=== PATIENT | male | born 1935 | race Caucasian/White ===

== ENCOUNTER 2019-12-13 13:55 | Emergency (ER) | payer OTHER ==
[~2019-12-13] VITALS: Ht 182.9 cm; Wt 90.9 kg
[2019-12-13 14:26] LABS: BASO % 0 % (0-3); EOS # 0.2 x10^3/uL (0.0-0.7); EOS % 3 % (0-3); HEMATOCRIT 33.7 % (39.0-53.0); HEMOGLOBIN 11.4 g/dL (13.0-17.5); LYMPH # 1.7 x10^3/uL (1.0-4.8); LYMPH % 33 % (24-48); MEAN CORPUSCULAR HEMOGLOBIN 32 pg (25-35); MEAN CORPUSCULAR HGB CONC 34 g/dL (31-37); MEAN CORPUSCULAR VOLUME 93 fL (79-100); MONO # 0.5 x10^3/uL (0.0-1.1); MONO % 10 % (0-9); NEUT # 2.8 x10^3/uL (1.8-7.7); NEUT % 53 % (31-73); PLATELET COUNT 154 x10^3/uL (140-400); RED BLOOD COUNT 3.62 x10^6/uL (4.30-5.70); RED CELL DISTRIBUTION WIDTH 13.3 % (11.5-14.5); WHITE BLOOD COUNT 5.2 x10^3/uL (4.0-11.0)
[2019-12-13 14:35] LABS: PROTHROMBIN TIME PATIENT 13.9 SEC (11.7-14.0)
[2019-12-13 14:44] LABS: CALCIUM 8.6 mg/dL (8.5-10.1); CREATININE 1.3 mg/dL (0.7-1.3); GFR 52.7
[2019-12-13 14:50] LABS: ALBUMIN 3.5 g/dL (3.4-5.0); MAGNESIUM 1.9 mg/dL (1.8-2.4); TOTAL BILIRUBIN 0.2 mg/dL (0.2-1.0); TOTAL PROTEIN 6.9 g/dL (6.4-8.2)
--- NOTE | 2019-12-13 15:08 | EKG ---
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
[2019-12-13] MEDS ORDERED: IV NORMAL SALINE 1000ML BAG 1,000 ML IV ONE (15:45)
--- NOTE | 2019-12-13 16:28 | PHYS DOC ---
Past Medical History Past Medical History: Dementia, Diabetes-Type II, Hypertension Past Surgical History: Other Additional Past Surgical Histo: UNKNOWN Smoking Status: Never Smoker Alcohol Use: None General Adult EDM: Chief Complaint: WEAKNESS/GENERALIZED HPI: HPI: Patient is a 84 year old male who was found on the floor between his bed and the washer and drier tender naphthalene units inside his bedroom. Patient was not sure what happened. He denied any chest pain, no headache, no neck pain, no back pain, n o abdominal pain, no nausea or vomiting. No cough, no fever. No shortness of air. Patient said he felt a little weaker than usual but can move all extremities, no speech problem. His daughter said he was usually acting this way when he was dehydrated. Review of Systems: Review of Systems: Constitutional: Denies fever or chills. Positive for generalized weakness Eyes: Denies change in visual acuity. [] HENT: Denies nasal congestion or sore throat. [] Respiratory: Denies cough or shortness of breath. [] Cardiovascular: Denies chest pain or edema. [] GI: Denies abdominal pain, nausea, vomiting, bloody stools or diarrhea. [] : Denies dysuria. [] Musculoskeletal: Denies back pain or joint pain. [] Integument: Denies rash. [] Neurologic: Denies headache, focal weakness or sensory changes. [] Endocrine: Denies polyuria or polydipsia. [] Lymphatic: Denies swollen glands. [] Psychiatric: Denies depression or anxiety. [] Heart Score: Risk Factors: Risk Factors: DM, Current or recent (<one month) smoker, HTN, HLP, family history of CAD, obesity. Risk Scores: Score 0 - 3: 2.5% MACE over next 6 weeks - Discharge Home Score 4 - 6: 20.3% MACE over next 6 weeks - Admit for Clinical Observation Score 7 - 10: 72.7% MACE over next 6 weeks - Early Invasive Strategies Current Medications: Current Medications Medications (Trade) Dose Ordered Sig/Jayesh Start Time Stop Time Status Last Admin Dose Admin Sodium Chloride 1,000 ml @ 1,000 mls/hr 1X ONCE 12/13/19 15:45 12/13/19 16:44 12/13/19 15:50 1,000 MLS/HR Allergies: Allergies: Allergies Coded Allergies Type Severity Reaction Last Updated Verified No Known Drug Allergies 12/13/19 No Physical Exam: PE: Constitutional: Well developed, well nourished, no acute distress, non-toxic appearance. [] HENT: Normocephalic, atraumatic, bilateral external ears normal, oropharynx is dried, no oral exudates, nose normal. [] Eyes: PERRLA, EOMI, conjunctiva normal, no discharge. [] Neck: Normal range of motion, no tenderness, supple, no stridor. [] Cardiovascular:Heart rate regular rhythm, no murmur [] Lungs & Thorax: Bilateral breath sounds clear to auscultation [] Abdomen: Bowel sounds normal, soft, no tenderness, no masses, no pulsatile masses. [] Skin: Warm, dry, no erythema, no rash. [] Back: No tenderness, no CVA tenderness. [] Extremities: No tenderness, no cyanosis, no clubbing, ROM intact, no edema. [] Neurologic: Alert and oriented X 3, normal motor function, normal sensory function, no focal deficits noted. [] Psychologic: Affect normal, judgement normal, mood normal. [] Current Patient Data: Labs: Laboratory Tests Test 12/13/19 14:05 White Blood Count 5.2 x10^3/uL (4.0-11.0) Red Blood Count 3.62 x10^6/uL (4.30-5.70) L Hemoglobin 11.4 g/dL (13.0-17.5) L Hematocrit 33.7 % (39.0-53.0) L Mean Corpuscular Volume 93 fL (79-100) Mean Corpuscular Hemoglobin 32 pg (25-35) Mean Corpuscular Hemoglobin Concent 34 g/dL (31-37) Red Cell Distribution Width 13.3 % (11.5-14.5) Platelet Count 154 x10^3/uL (140-400) Neutrophils (%) (Auto) 53 % (31-73) Lymphocytes (%) (Auto) 33 % (24-48) Monocytes (%) (Auto) 10 % (0-9) H Eosinophils (%) (Auto) 3 % (0-3) Basophils (%) (Auto) 0 % (0-3) Neutrophils # (Auto) 2.8 x10^3/uL (1.8-7.7) Lymphocytes # (Auto) 1.7 x10^3/uL (1.0-4.8) Monocytes # (Auto) 0.5 x10^3/uL (0.0-1.1) Eosinophils # (Auto) 0.2 x10^3/uL (0.0-0.7) Basophils # (Auto) 0.0 x10^3/uL (0.0-0.2) Prothrombin Time 13.9 SEC (11.7-14.0) Prothrombin Time INR 1.1 (0.8-1.1) Activated Partial Thromboplast Time 33 SEC (24-38) Sodium Level 137 mmol/L (136-145) Potassium Level 4.0 mmol/L (3.5-5.1) Chloride Level 102 mmol/L (98-107) Carbon Dioxide Level 28 mmol/L (21-32) Anion Gap 7 (6-14) Blood Urea Nitrogen 16 mg/dL (8-26) Creatinine 1.3 mg/dL (0.7-1.3) Estimated GFR (Cockcroft-Gault) 52.7 BUN/Creatinine Ratio 12 (6-20) Glucose Level 99 mg/dL (70-99) Calcium Level 8.6 mg/dL (8.5-10.1) Magnesium Level 1.9 mg/dL (1.8-2.4) Total Bilirubin 0.2 mg/dL (0.2-1.0) Aspartate Amino Transferase (AST) 24 U/L (15-37) Alanine Aminotransferase (ALT) 15 U/L (16-63) L Alkaline Phosphatase 65 U/L (46-116) Troponin I Quantitative < 0.017 ng/mL (0.000-0.055) YC-Dxc-R-Type Natriuretic Peptide 76 pg/mL (0-449) Total Protein 6.9 g/dL (6.4-8.2) Albumin 3.5 g/dL (3.4-5.0) Albumin/Globulin Ratio 1.0 (1.0-1.7) Lipase 268 U/L (73-393) Thyroid Stimulating Hormone (TSH) 0.996 uIU/mL (0.358-3.74) Laboratory Tests 12/13/19 14:05 Laboratory Tests 12/13/19 14:05 Vital Signs: Vital Signs Date Time Temp Pulse Resp B/P (MAP) Pulse Ox O2 Delivery O2 Flow Rate FiO2 12/13/19 14:59 67 96 12/13/19 13:55 97.8 20 138/62 (87) Room Air 97.8 EKG: EKG: [][facility] [id number] [place] [address] EKG REPORT Signed PATIENT: PATTI WASSERMAN ACCOUNT: [id number] : 1935 LOCATION: ER AGE: 84 SEX: M EXAM PROCEDURE: 12 Lead EKG STATUS: REG ER ORD. 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: : 1935 Requested By: GOKUL ALVARADO Order Number: [id number] Reading MD: Valerie Gautam Measurements Intervals [place] Rate: 61 P: 0 DE: 188 QRS: -42 QRSD: 130 T: 64 QT: 452 QTc: 457 Interpretive Statements SINUS RHYTHM ABNORMAL LEFT AXIS DEVIATION LEFT ANTERIOR FASCICULAR BLOCK NON SPECIFIC INTRAVENTRICULAR BLOCK Electronically Signed On 12-13-2019 16:53:00 CDT by Valerie Gautam DICTATED and SIGNED BY: VALERIE GAUTAM MD DATE: 12/13/19 1401 Radiology/Procedures: Radiology/Procedures: [] Course & Med Decision Making: Course & Med Decision Making Pertinent Labs and Imaging studies reviewed. (See chart for details) Patient is a 84 year old male who was found to be dehydrated. He was given iv fluid. He felt much better, denied any chest pain, no headache, no neck pain, no back pain, no abdominal pain. His daughter was here with him, agreed to take him home. Dragon Disclaimer: Dragon Disclaimer: This electronic medical record was generated, in whole or in part, using a voice recognition dictation system. Departure Departure Impression: Primary Impression: Dehydration Additional Impression: Weakness Disposition: 01 HOME, SELF-CARE Condition: IMPROVED Referrals: UNKNOWN PCP NAME (PCP) PLEASE CALL YOUR FAMILY DOCTOR FOR FOLLOW UP NEXT WEEK. Patient Instructions: Dehydration, Adult, Weakness Additional Instructions: Thank you for visiting our Emergency Department. We appreciate you trusting us with your care. If any additional problems come up don't hesitate to return to visit us. Please follow up with your primary care provider so they can plan additional care if needed and know about the problem that you had. If symptoms worsen come back to the Emergency Department. Any concerning symptoms that start such as chest pain, shortness of air, weakness or numbness on one side of the body, running high fevers or any other concerning symptoms return to the ER. Justicifation of Admission Dx: Justifications for Admission: Justification of Admission Dx: N/A GOKUL ALVARADO DO Dec 13, 2019 16:28
[2019-12-13 16:59] VITALS: BP 154/65
== END 2019-12-13 17:10 | disposition home or self-care (01) ==
LOC: ER 13:55
DX: E86.0 Dehydration (principal); R53.1 Weakness; E11.9 Type 2 diabetes mellitus without complications; I10 Essential (primary) hypertension; F03.90 Unspecified dementia, unspecified severity, without behavioral disturbance, psychotic disturbance, mood disturbance, and anxiety
CPT/HCPCS: 36415; 80053; 83690; 83735; 83880; 84443; 84484; 85025; 85610; 85730; 93005; 96360; 99285; J7030

== ENCOUNTER 2021-11-15 13:59 | Inpatient (IN) | payer MEDICARE, OTHER ==
[~2021-11-15] VITALS: Ht 182.9 cm; Wt 72.7 kg
[2021-11-15] MEDS ORDERED: MORPHINE SULFATE 2 MG/ML INJ. IV/SQ PRN (14:15)
[2021-11-15 14:24] LABS: BASO % 0 % (0-3); EOS % 4 % (0-3); HEMATOCRIT 28.5 % (39.0-53.0); HEMOGLOBIN 9.6 g/dL (13.0-17.5); LYMPH # 1.4 x10^3/uL (1.0-4.8); LYMPH % 16 % (24-48); MEAN CORPUSCULAR HEMOGLOBIN 31 pg (25-35); MEAN CORPUSCULAR HGB CONC 34 g/dL (31-37); MEAN CORPUSCULAR VOLUME 91 fL (79-100); MONO % 10 % (0-9); NEUT # 6.1 x10^3/uL (1.8-7.7); NEUT % 70 % (31-73); PLATELET COUNT 310 x10^3/uL (140-400); RED BLOOD COUNT 3.12 x10^6/uL (4.30-5.70); RED CELL DISTRIBUTION WIDTH 14.5 % (11.5-14.5); WHITE BLOOD COUNT 8.7 x10^3/uL (4.0-11.0)
[2021-11-15 14:25] LABS: EOS # 0.3 x10^3/uL (0.0-0.7); MONO # 0.9 x10^3/uL (0.0-1.1)
[2021-11-15 14:31] LABS: PROTHROMBIN TIME PATIENT 14.4 SEC (11.7-14.0)
[2021-11-15 14:37] LABS: CALCIUM 8.8 mg/dL (8.5-10.1); POTASSIUM 4.4 mmol/L (3.5-5.1)
[2021-11-15 14:44] LABS: ALBUMIN 2.6 g/dL (3.4-5.0); ALBUMIN/GLOBULIN RATIO 0.7 (1.0-1.7); MAGNESIUM 1.9 mg/dL (1.8-2.4); TOTAL BILIRUBIN 0.4 mg/dL (0.2-1.0); TOTAL PROTEIN 6.3 g/dL (6.4-8.2)
--- NOTE | 2021-11-15 15:00 | PHYS DOC ---
Past Medical History Past Medical History: Dementia, Diabetes-Type II, Hypertension Past Surgical History: Other Additional Past Surgical Histo: UNKNOWN Smoking Status: Never Smoker Alcohol Use: None General Adult EDM: Chief Complaint: HIP PAIN HPI: HPI: Patient is a 86 year old male with history of diabetes type 2, hypertension, dementia, presented to the ED today evaluated from a senior living. Patient apparently fell on November 05, 2021. They did an x-ray of his left hip today and he was noted to have a left hip fracture and was sent to the ED. Patient is a poor historian. Review of Systems: Review of Systems: Constitutional: Unable to assess due to mentation Eyes: Unable to assess due to mentation HENT: Unable to assess due to mentation Respiratory: ] Unable to assess due to mentation Cardiovascular: Unable to assess due to mentation GI: Unable to assess due to mentation : Unable to assess due to mentation Musculoskeletal: Left hip fracture Integument: Unable to assess due to mentation Neurologic: Unable to assess due to mentation Psychiatric: Unable to assess due to mentation Heart Score: C/O Chest Pain: N/A Risk Factors: Risk Factors: DM, Current or recent (<one month) smoker, HTN, HLP, family history of CAD, obesity. Risk Scores: Score 0 - 3: 2.5% MACE over next 6 weeks - Discharge Home Score 4 - 6: 20.3% MACE over next 6 weeks - Admit for Clinical Observation Score 7 - 10: 72.7% MACE over next 6 weeks - Early Invasive Strategies Current Medications: Current Medications Medications (Trade) Dose Ordered Sig/[facility] Start Time Stop Time Status Last Admin Dose Admin Morphine Sulfate (Morphine Sulfate) 2 mg PRN Q15MIN PRN 11/15/21 14:15 11/16/21 14:14 Allergies: Allergies: Allergies Coded Allergies Type Severity Reaction Last Updated Verified No Known Drug Allergies 12/13/19 No Physical Exam: PE: Constitutional: Well developed, well nourished, no acute distress, non-toxic appearance. [] HENT: Normocephalic, atraumatic, bilateral external ears normal, oropharynx moist, no oral exudates, nose normal. [] Eyes: PERRLA, EOMI, conjunctiva normal, no discharge. [] Neck: Normal range of motion, no tenderness, supple, no stridor. [] Cardiovascular:Heart rate regular rhythm, no murmur [] Lungs & Thorax: Bilateral breath sounds clear to auscultation [] Abdomen: Bowel sounds normal, soft, no tenderness, no masses, no pulsatile masses. [] Skin: Warm, dry, no erythema, no rash. [] Back: No tenderness, no CVA tenderness. [] Extremities: Shortening and internal rotation of the left lower extremity noted. Range of motion limited to the left lower extremity. +2 left pedal pulse. Cap refill less than 2 seconds left toes. Neurologic: Alert and oriented X 1, normal motor function, normal sensory function, no focal deficits noted. [] Psychologic: Affect normal, judgement normal, mood normal. [] Current Patient Data: Labs: Laboratory Tests Test 11/15/21 14:07 White Blood Count 8.7 x10^3/uL (4.0-11.0) Red Blood Count 3.12 x10^6/uL (4.30-5.70) L Hemoglobin 9.6 g/dL (13.0-17.5) L Hematocrit 28.5 % (39.0-53.0) L Mean Corpuscular Volume 91 fL (79-100) Mean Corpuscular Hemoglobin 31 pg (25-35) Mean Corpuscular Hemoglobin Concent 34 g/dL (31-37) Red Cell Distribution Width 14.5 % (11.5-14.5) Platelet Count 310 x10^3/uL (140-400) Neutrophils (%) (Auto) 70 % (31-73) Lymphocytes (%) (Auto) 16 % (24-48) L Monocytes (%) (Auto) 10 % (0-9) H Eosinophils (%) (Auto) 4 % (0-3) H Basophils (%) (Auto) 0 % (0-3) Neutrophils # (Auto) 6.1 x10^3/uL (1.8-7.7) Lymphocytes # (Auto) 1.4 x10^3/uL (1.0-4.8) Monocytes # (Auto) 0.9 x10^3/uL (0.0-1.1) Eosinophils # (Auto) 0.3 x10^3/uL (0.0-0.7) Basophils # (Auto) 0.0 x10^3/uL (0.0-0.2) Prothrombin Time 14.4 SEC (11.7-14.0) H Prothrombin Time INR 1.2 (0.8-1.1) H Activated Partial Thromboplast Time 33 SEC (24-38) Sodium Level 135 mmol/L (136-145) L Potassium Level 4.4 mmol/L (3.5-5.1) Chloride Level 99 mmol/L (98-107) Carbon Dioxide Level 29 mmol/L (21-32) Anion Gap 7 (6-14) Blood Urea Nitrogen 24 mg/dL (8-26) Creatinine 1.0 mg/dL (0.7-1.3) Estimated GFR (Cockcroft-Gault) 71.0 BUN/Creatinine Ratio 24 (6-20) H Glucose Level 259 mg/dL (70-99) H Calcium Level 8.8 mg/dL (8.5-10.1) Magnesium Level 1.9 mg/dL (1.8-2.4) Total Bilirubin 0.4 mg/dL (0.2-1.0) Aspartate Amino Transferase (AST) 18 U/L (15-37) Alanine Aminotransferase (ALT) 23 U/L (16-63) Alkaline Phosphatase 92 U/L (46-116) Total Protein 6.3 g/dL (6.4-8.2) L Albumin 2.6 g/dL (3.4-5.0) L Albumin/Globulin Ratio 0.7 (1.0-1.7) L Laboratory Tests 11/15/21 14:07 Laboratory Tests 11/15/21 14:07 Vital Signs: Vital Signs Date Time Temp Pulse Resp B/P (MAP) Pulse Ox O2 Delivery O2 Flow Rate FiO2 11/15/21 14:05 98.7 82 16 187/86 (119) 97 Room Air 98.7 EKG: EKG: [] Radiology/Procedures: Radiology/Procedures: [] Course & Med Decision Making: Course & Med Decision Making Pertinent Labs and Imaging studies reviewed. (See chart for details) This is a 86-year-old male patient presenting to the ED today to be evaluated after falling on 11/05/2021. They did x-rays at the senior living and he was noted to have left hip fracture. Patient is a poor historian Left hip x-rays interpreted by radiologist were noted for acute displaced left femoral neck fracture Spoke to Frances FERNANDEZ for Ortho. They will f/u with patient Spoke to Dr. Chawla who accepted patient for admission Jacy Disclaimer: Jacy Disclaimer: This electronic medical record was generated, in whole or in part, using a voice recognition dictation system. Departure Departure Impression: Primary Impression: Femoral neck fracture Qualified Codes: S72.002A - Fracture of unspecified part of neck of left femur, initial encounter for closed fracture Additional Impression: Fall Qualified Codes: W19.XXXA - Unspecified fall, initial encounter Disposition: ADMITTED INPATIENT Condition: STABLE Referrals: UNKNOWN PCP NAME (PCP) ANDREEA MANCIA HORTICULTURE INSTRUCTOR November 15, 2021 15:00
[2021-11-15 15:30] LABS: BACTERIA,URINE FEW /HPF (0-FEW); WBC,URINE OCC /HPF (0-4)
[2021-11-15] MEDS: IV NORMAL SALINE 1000ML BAG 1,000 ML IV SCH (17:15)
--- NOTE | 2021-11-15 17:23 | PDOC2 ---
CONSULT Date of Consult Date of Consult DATE: 11/15/21 TIME: 17:10 Reason for Consult Reason for Consult: Left hip fracture History of Present Illness Reason for Visit: The history is taken from the patient's coqbyrig-in-deq at the bedside and the chart. Apparently the patient fell about a week ago at the [facility] where [facility]. His rlmhsipp-py-ygy says that the [facility] called them and said that he had fallen but that he was okay. She says that she got a call today that they were taking him to the emergency room because they had a mobile x-ray at the facility that showed a fracture. She says that she does not think he has been walking for a while but says that she knows he was walking last fall. She says that it has been difficult to visit him because of COVID restrictions on and off at the facility. She is not sure about his mobility status but says the last few times they have visited him he has been in a wheelchair at the facility. She says she has never specifically asked. Past Medical History Past Medical History Siizvvxj-kx-kjh says he has a history of dementia, multiple falls hypertension and prostate cancer 12 years ago. Information from the facility also is positive for type 2 diabetes with neuropathy osteoarthritis vitamin D deficiency depression anemia peripheral vascular disease dysphagia dyslipidemia Past Surgical History Past Surgical History Iivxloxk-uc-rsr reports knee surgery but is unsure of his surgeries before that. Family History Family History Noncontributory Social History Social History Ogqthdmy-tt-pbf reports that prior to him going to the [facility] last summer, he smoked a pipe daily with tobacco and drink heavily but is unable to quantify. She says that he entered a [facility] last summer in January and has not had tobacco or alcohol since then. No recent drug use that is known. Current Problem List Problem List Problems Medical Problems: (1) Fall Status: Acute (2) Femoral neck fracture Status: Acute Current Medications Current Medications Medications per facility are acetaminophen, vitamin C, aspirin, eyedrops, duloxetine, iron, hydralazine, lidocaine patch, losartan, Percocet and vitamin D Current Medications Morphine Sulfate (Morphine Sulfate) 2 mg PRN Q15MIN PRN IV/SQ PAIN GREATER THAN 3/10 Last administered on 11/15/21at 15:31; Start 11/15/21 at 14:15; Stop 11/16/21 at 14:14 Allergies Allergies: Coded Allergies: lisinopril (Unverified Allergy, Unknown, Unknown, 11/15/21) REPORTED BY REHAB FACILITY, [facility]. meloxicam (Unverified Allergy, Unknown, Unknown, 11/15/21) REPORTED BY REHAB FACILITY, [facility]. ROS Review of System Unable to be obtained due to patient's cognition Physical Exam Physical Exam Patient is seen lying in the emergency room bay with his iglixttg-cl-hig at the bedside. She has paperwork with her that identifies her as the power of insurance defense attorney. She is appropriate in her behavior and interaction. The patient does open his eyes once or twice during the exam. He does respond to his yoqqnixs-tg-cph's voice but does not make any other interaction. There is no evidence of head trauma. The patient has significant grimace with slight movement of the left leg. The left leg is mildly shortened. Calf is soft bilaterally. The patient does move both feet occasionally. He does actively flex the right hip but will not move the left leg actively. Both feet are cool to touch. The left hand has intact skin. There is no erythema, warmth or induration. He does have some resolving ecchymosis over the volar aspect of the metacarpals of the index and long fingers. There is no specific tenderness to palpation in this area. Vitals VITALS Vital Signs Date Time Temp Pulse Resp B/P (MAP) Pulse Ox O2 Delivery O2 Flow Rate FiO2 11/15/21 15:31 22 99 Room Air 11/15/21 14:05 98.7 82 187/86 (119) 98.7 Labs Labs Laboratory Tests Test 11/15/21 14:07 11/15/21 14:40 11/15/21 14:49 White Blood Count 8.7 x10^3/uL (4.0-11.0) Red Blood Count 3.12 x10^6/uL (4.30-5.70) Hemoglobin 9.6 g/dL (13.0-17.5) Hematocrit 28.5 % (39.0-53.0) Mean Corpuscular Volume 91 fL (79-100) Mean Corpuscular Hemoglobin 31 pg (25-35) Mean Corpuscular Hemoglobin Concent 34 g/dL (31-37) Red Cell Distribution Width 14.5 % (11.5-14.5) Platelet Count 310 x10^3/uL (140-400) Neutrophils (%) (Auto) 70 % (31-73) Lymphocytes (%) (Auto) 16 % (24-48) Monocytes (%) (Auto) 10 % (0-9) Eosinophils (%) (Auto) 4 % (0-3) Basophils (%) (Auto) 0 % (0-3) Neutrophils # (Auto) 6.1 x10^3/uL (1.8-7.7) Lymphocytes # (Auto) 1.4 x10^3/uL (1.0-4.8) Monocytes # (Auto) 0.9 x10^3/uL (0.0-1.1) Eosinophils # (Auto) 0.3 x10^3/uL (0.0-0.7) Basophils # (Auto) 0.0 x10^3/uL (0.0-0.2) Prothrombin Time 14.4 SEC (11.7-14.0) Prothromb Time International Ratio 1.2 (0.8-1.1) Activated Partial Thromboplast Time 33 SEC (24-38) Sodium Level 135 mmol/L (136-145) Potassium Level 4.4 mmol/L (3.5-5.1) Chloride Level 99 mmol/L (98-107) Carbon Dioxide Level 29 mmol/L (21-32) Anion Gap 7 (6-14) Blood Urea Nitrogen 24 mg/dL (8-26) Creatinine 1.0 mg/dL (0.7-1.3) Estimated GFR (Cockcroft-Gault) 71.0 BUN/Creatinine Ratio 24 (6-20) Glucose Level 259 mg/dL (70-99) Calcium Level 8.8 mg/dL (8.5-10.1) Magnesium Level 1.9 mg/dL (1.8-2.4) Total Bilirubin 0.4 mg/dL (0.2-1.0) Aspartate Amino Transf (AST/SGOT) 18 U/L (15-37) Alanine Aminotransferase (ALT/SGPT) 23 U/L (16-63) Alkaline Phosphatase 92 U/L (46-116) Troponin I High Sensitivity 20 ng/L (4-75) NE-Nkk-A-Type Natriuretic Peptide 181 pg/mL (0-449) Total Protein 6.3 g/dL (6.4-8.2) Albumin 2.6 g/dL (3.4-5.0) Albumin/Globulin Ratio 0.7 (1.0-1.7) SARS-CoV-2 Antigen (Rapid) Negative (NEGATIVE) Urine Collection Type Unknown Urine Color (Auto) Light yellow Urine Turbidity Clear Urine pH (Auto) 5.5 (<5.0-8.0) Urine Specific [place] 1.019 (1.000-1.030) Urine Protein (Auto) Negative mg/dL (Negative) Urine Glucose (Auto)(UA) >=1000 mg/dL (Negative) Urine Ketones (Auto) Negative mg/dL (Negative) Urine Blood (Auto) Negative (Negative) Urine Nitrite Negative (Negative) Urine Bilirubin (Auto) Negative (Negative) Urine Urobilinogen (Auto) 2 mg/dL (Normal) Urine Leukocyte Esterase (Auto) Negative (Negative) Urine RBC 6-10 /HPF (0-2) Urine WBC Occ /HPF (0-4) Urine Squamous Epithelial Cells Many /LPF Urine Bacteria Few /HPF (0-FEW) Urine Mucus Slight /LPF Laboratory Tests Test 11/15/21 14:07 11/15/21 14:40 11/15/21 14:49 White Blood Count 8.7 x10^3/uL (4.0-11.0) Red Blood Count 3.12 x10^6/uL (4.30-5.70) Hemoglobin 9.6 g/dL (13.0-17.5) Hematocrit 28.5 % (39.0-53.0) Mean Corpuscular Volume 91 fL (79-100) Mean Corpuscular Hemoglobin 31 pg (25-35) Mean Corpuscular Hemoglobin Concent 34 g/dL (31-37) Red Cell Distribution Width 14.5 % (11.5-14.5) Platelet Count 310 x10^3/uL (140-400) Neutrophils (%) (Auto) 70 % (31-73) Lymphocytes (%) (Auto) 16 % (24-48) Monocytes (%) (Auto) 10 % (0-9) Eosinophils (%) (Auto) 4 % (0-3) Basophils (%) (Auto) 0 % (0-3) Neutrophils # (Auto) 6.1 x10^3/uL (1.8-7.7) Lymphocytes # (Auto) 1.4 x10^3/uL (1.0-4.8) Monocytes # (Auto) 0.9 x10^3/uL (0.0-1.1) Eosinophils # (Auto) 0.3 x10^3/uL (0.0-0.7) Basophils # (Auto) 0.0 x10^3/uL (0.0-0.2) Prothrombin Time 14.4 SEC (11.7-14.0) Prothromb Time International Ratio 1.2 (0.8-1.1) Activated Partial Thromboplast Time 33 SEC (24-38) Sodium Level 135 mmol/L (136-145) Potassium Level 4.4 mmol/L (3.5-5.1) Chloride Level 99 mmol/L (98-107) Carbon Dioxide Level 29 mmol/L (21-32) Anion Gap 7 (6-14) Blood Urea Nitrogen 24 mg/dL (8-26) Creatinine 1.0 mg/dL (0.7-1.3) Estimated GFR (Cockcroft-Gault) 71.0 BUN/Creatinine Ratio 24 (6-20) Glucose Level 259 mg/dL (70-99) Calcium Level 8.8 mg/dL (8.5-10.1) Magnesium Level 1.9 mg/dL (1.8-2.4) Total Bilirubin 0.4 mg/dL (0.2-1.0) Aspartate Amino Transf (AST/SGOT) 18 U/L (15-37) Alanine Aminotransferase (ALT/SGPT) 23 U/L (16-63) Alkaline Phosphatase 92 U/L (46-116) Troponin I High Sensitivity 20 ng/L (4-75) WI-Mwk-B-Type Natriuretic Peptide 181 pg/mL (0-449) Total Protein 6.3 g/dL (6.4-8.2) Albumin 2.6 g/dL (3.4-5.0) Albumin/Globulin Ratio 0.7 (1.0-1.7) SARS-CoV-2 Antigen (Rapid) Negative (NEGATIVE) Urine Collection Type Unknown Urine Color (Auto) Light yellow Urine Turbidity Clear Urine pH (Auto) 5.5 (<5.0-8.0) Urine Specific [place] 1.019 (1.000-1.030) Urine Protein (Auto) Negative mg/dL (Negative) Urine Glucose (Auto)(UA) >=1000 mg/dL (Negative) Urine Ketones (Auto) Negative mg/dL (Negative) Urine Blood (Auto) Negative (Negative) Urine Nitrite Negative (Negative) Urine Bilirubin (Auto) Negative (Negative) Urine Urobilinogen (Auto) 2 mg/dL (Normal) Urine Leukocyte Esterase (Auto) Negative (Negative) Urine RBC 6-10 /HPF (0-2) Urine WBC Occ /HPF (0-4) Urine Squamous Epithelial Cells Many /LPF Urine Bacteria Few /HPF (0-FEW) Urine Mucus Slight /LPF Images Images Personally reviewed and show a left femoral neck fracture Assessment/Plan Assessment/Plan Left femoral neck fracture Osteoporosis Advanced dementia Hypertension Type 2 diabetes with neuropathy History of prostate cancer Left hand ecchymosis Plan: We discussed the risks, benefits, alternatives and rehab times of left hip hemiarthroplasty with the bakuszxc-rb-fmt at the bedside today. She is going to have a meeting with her family in regards to the surgery as well as recovery. We did discuss that when patients have baseline dementia, they do not always recover well after surgery. We discussed that if he was not walking before surgery, he will not be walking after surgery most likely. We did discuss this procedure as palliative in nature as well. Discussed with the daughter in law that patients presenting with a hip fracture a week out is incredibly unusual. We discussed the level of pain that is associated with these injuries. We did asked the emergency room staff to contact social media marketing manager on this patient's behalf to make sure there is no neglect happening at the facility. We will also get an x-ray of his left hand since he has the ecchymosis there. We will plan to go to surgery tomorrow. RAUDEL JUAREZ November 15, 2021 17:23
--- NOTE | 2021-11-15 19:00 | NUR ---
The patient, PATTI WASSERMAN, 85 y/o, M admitted by EVENS COLIN III, DO, was given written information regarding hospital policies, unit procedures and contact persons. No family at bedside, Patient unable to answer admission questions. Will pull admission information from facility and ED paperwork. Valuables were checked .
[2021-11-15] MEDS ORDERED: FERR-26 PO (20:48)
[2021-11-15] MEDS ORDERED: HYDR-2867 PO (20:55)
[2021-11-15] MEDS ORDERED: OXYC-325 PO (20:55)
[2021-11-15] MEDS ORDERED: LOSA25TA54 PO (20:55)
[2021-11-15] MEDS ORDERED: LIDO15CR9 TP (20:55)
[2021-11-15] MEDS ORDERED: MV-M1TAB7 PO (20:55)
[2021-11-15] MEDS ORDERED: LIDO700A21 TP (20:55)
[2021-11-15] MEDS ORDERED: ASCO500T3 PO (21:02)
[2021-11-15] MEDS ORDERED: ACET-1871 PO (21:02)
[2021-11-15] MEDS ORDERED: ASPI-886 PO (21:02)
[2021-11-15] MEDS ORDERED: CARB1DRO40 OP (21:03)
[2021-11-15] MEDS ORDERED: DULO40CA2 PO (21:06)
[2021-11-15] MEDS ORDERED: FERR325T14 PO (21:06)
[2021-11-15] MEDS ORDERED: INFLUENZA VAX SCREEN BY RX. MC ONE (21:45)
[2021-11-16] VITALS (12 sets, daily range): BP systolic 141–172; BP diastolic 61–78
[2021-11-16] MEDS: IV NORMAL SALINE 1000ML BAG 1,000 ML IV SCH ×2 (06:35→19:55)
--- NOTE | 2021-11-16 07:46 | HP ---
DATE OF SERVICE: 11/15/2021 ADMIT DATE: 11/15/2021 CHIEF COMPLAINT: Fall with hip pain and hip fracture. HISTORY OF PRESENT ILLNESS: The patient is a pleasant 85-year-old male who has dementia, diabetes and hypertension. Basically, he is at a halfway. Apparently, he fell on 11/05/2021. He has been having some chronic pain according to the record. Hip x-ray was done today as an outpatient. It apparently did show a hip fracture. The nurse practitioner in the ER called me and explained the situation. We are going to admit the patient and consult Orthopedics. PAST MEDICAL HISTORY: Dementia, hypertension, and diabetes. ALLERGIES: LISINOPRIL AND MELOXICAM. FAMILY HISTORY: Unknown. SOCIAL HISTORY: Unknown. He has dementia, but he does live at a halfway. MEDICATIONS: None reported at this time yet. We are awaiting the medication list to be uploaded. REVIEW OF SYSTEMS: Unable to obtain. He is pleasantly confused. PHYSICAL EXAMINATION: VITALS: Within normal limits and are stable. GENERAL: Very quiet and probably depressed. HEENT: Pupils are equally round and reactive to light and accommodation. EYES: Extraocular muscles are intact, pupils are equally round and reactive to light and accommodation. MUSCULOSKELETAL: Well developed, well nourished, good range of motion. ENDOCRINE: No thyromegaly was palpated. LYMPHATICS: No cervical chain or axillary nodes were noted. HEMATOPOIETIC: No bruising. NECK: Supple, no JVD, no thyromegaly was noted. LUNGS: Clear to auscultation in all lung hubbard without rhonchi or wheezing. HEART: RRR, S1, S2 present. Peripheral pulses intact, no obvious murmurs were noted. ABDOMEN: Soft, nontender. Positive bowel sounds no organomegaly, normal bowel sounds. EXTREMITIES: He flinches with hip pain with any palpation of the lower extremity, whatsoever. NEUROLOGIC: Pleasantly confused. PSYCHIATRIC: He is very quiet, seems perhaps depressed. SKIN: No ulcerations or rashes, good skin turgor, no jaundice. VASCULAR: Good capillary refill, neurovascular bundle appears to be intact. DIAGNOSTIC DATA: White count 8.7, hemoglobin 9.6, platelets 310. Electrolytes: Sodium 135. The other electrolytes are normal. Glucose is high at 259. Albumin is low at 2.6. INR is 1.2. Urinalysis negative. COVID testing negative. ASSESSMENT AND PLAN: Fall with left hip fracture. The patient has been admitted. We will consult Orthopedics. Resume his home meds, p.r.n. pain meds, IV fluids, p.r.n. morphine, p.r.n. Zofran. Await Orthopedics' input. DAMION DR: Simona TID: [id number]
--- NOTE | 2021-11-16 07:47 | RAD ---
XR CHEST 1V INDICATION: fall fx, pain COMPARISON STUDY: None. FINDINGS: Lungs: Low lung volumes. No consolidation. Pleura: No pleural effusion or pneumothorax. Heart and Mediastinum: The cardiomediastinal silhouette is normal. Tortuous thoracic aorta. IMPRESSION: No acute cardiopulmonary process. Electronically signed by: Marcelino Tineo MD (11/15/2021 3:06 PM) [id number]
--- NOTE | 2021-11-16 07:48 | RAD ---
Exam: Left hand 3 views INDICATION: Left hand ecchymosis, pain TECHNIQUE: Frontal, lateral oblique views of the left hand Comparisons: None FINDINGS: Diffuse osteopenia. There is scattered degenerative change throughout the interphalangeal joints and intercarpal joints. No displaced fractures identified. Soft tissues are unremarkable. IMPRESSION: No acute fracture identified. Electronically signed by: Pooja Dudley MD (11/15/2021 5:57 PM) MISAEL
--- NOTE | 2021-11-16 07:48 | RAD ---
XR LT HIP (WITH OR WITHOUT PELVIS) 2 VIEWS DATE: 11/15/2021 2:15 PM INDICATION: Pain, fall fx COMPARISON: None. FINDINGS: Bones: Acute left femoral neck basicervical fracture with proximal migration of the distal femur and varus angulation Joints: Mild degenerative changes of the hips. Hip joints are congruent Miscellaneous: None. IMPRESSION: Acute displaced left femoral neck fracture Electronically signed by: Marcelino Tineo MD (11/15/2021 3:07 PM) [id number]
--- NOTE | 2021-11-16 10:40 | PDOC ---
[employer] PROGRESS NOTE Date of Service DOS: DATE: 11/16/21 TIME: 10:39 Chief Complaint Chief Complaint Fall with left hip fracture History of the following; Dementia, hypertension, and diabetes. History of Present Illness History of Present Illness 11/16/2021 Patient seen and examined Discussed with RN Chart reviewed He is possibly going to surgery today Vitals/I&O Vitals/I&O: Vital Signs Date Time Temp Pulse Resp B/P (MAP) Pulse Ox O2 Delivery O2 Flow Rate FiO2 11/16/21 07:45 Room Air 11/16/21 07:00 97.6 83 19 167/61 (96) 94 97.6 Labs Labs: Laboratory Tests Test 11/15/21 14:07 11/15/21 14:40 11/15/21 14:49 11/15/21 18:37 White Blood Count 8.7 x10^3/uL (4.0-11.0) Red Blood Count 3.12 x10^6/uL (4.30-5.70) Hemoglobin 9.6 g/dL (13.0-17.5) Hematocrit 28.5 % (39.0-53.0) Mean Corpuscular Volume 91 fL (79-100) Mean Corpuscular Hemoglobin 31 pg (25-35) Mean Corpuscular Hemoglobin Concent 34 g/dL (31-37) Red Cell Distribution Width 14.5 % (11.5-14.5) Platelet Count 310 x10^3/uL (140-400) Neutrophils (%) (Auto) 70 % (31-73) Lymphocytes (%) (Auto) 16 % (24-48) Monocytes (%) (Auto) 10 % (0-9) Eosinophils (%) (Auto) 4 % (0-3) Basophils (%) (Auto) 0 % (0-3) Neutrophils # (Auto) 6.1 x10^3/uL (1.8-7.7) Lymphocytes # (Auto) 1.4 x10^3/uL (1.0-4.8) Monocytes # (Auto) 0.9 x10^3/uL (0.0-1.1) Eosinophils # (Auto) 0.3 x10^3/uL (0.0-0.7) Basophils # (Auto) 0.0 x10^3/uL (0.0-0.2) Prothrombin Time 14.4 SEC (11.7-14.0) Prothromb Time International Ratio 1.2 (0.8-1.1) Activated Partial Thromboplast Time 33 SEC (24-38) Sodium Level 135 mmol/L (136-145) Potassium Level 4.4 mmol/L (3.5-5.1) Chloride Level 99 mmol/L (98-107) Carbon Dioxide Level 29 mmol/L (21-32) Anion Gap 7 (6-14) Blood Urea Nitrogen 24 mg/dL (8-26) Creatinine 1.0 mg/dL (0.7-1.3) Estimated GFR (Cockcroft-Gault) 71.0 BUN/Creatinine Ratio 24 (6-20) Glucose Level 259 mg/dL (70-99) Calcium Level 8.8 mg/dL (8.5-10.1) Magnesium Level 1.9 mg/dL (1.8-2.4) Total Bilirubin 0.4 mg/dL (0.2-1.0) Aspartate Amino Transf (AST/SGOT) 18 U/L (15-37) Alanine Aminotransferase (ALT/SGPT) 23 U/L (16-63) Alkaline Phosphatase 92 U/L (46-116) Troponin I High Sensitivity 20 ng/L (4-75) 23 ng/L (4-75) HO-Jyf-L-Type Natriuretic Peptide 181 pg/mL (0-449) Total Protein 6.3 g/dL (6.4-8.2) Albumin 2.6 g/dL (3.4-5.0) Albumin/Globulin Ratio 0.7 (1.0-1.7) SARS-CoV-2 Antigen (Rapid) Negative (NEGATIVE) Urine Collection Type Unknown Urine Color (Auto) Light yellow Urine Turbidity Clear Urine pH (Auto) 5.5 (<5.0-8.0) Urine Specific [place] 1.019 (1.000-1.030) Urine Protein (Auto) Negative mg/dL (Negative) Urine Glucose (Auto)(UA) >=1000 mg/dL (Negative) Urine Ketones (Auto) Negative mg/dL (Negative) Urine Blood (Auto) Negative (Negative) Urine Nitrite Negative (Negative) Urine Bilirubin (Auto) Negative (Negative) Urine Urobilinogen (Auto) 2 mg/dL (Normal) Urine Leukocyte Esterase (Auto) Negative (Negative) Urine RBC 6-10 /HPF (0-2) Urine WBC Occ /HPF (0-4) Urine Squamous Epithelial Cells Many /LPF Urine Bacteria Few /HPF (0-FEW) Urine Mucus Slight /LPF Test 11/16/21 08:08 Glucose (Fingerstick) 152 mg/dL (70-99) Assessment and Plan Assessmemt and Plan Problems Medical Problems: (1) Fall Status: Acute (2) Femoral neck fracture Status: Acute Fall with left hip fracture History of the following; Dementia, hypertension, and diabetes. Plan He is possibly going to surgery today Postoperatively he will need the following Wound care PT OT Home meds DVT prophylaxis Full code As needed pain meds He may need nursing home? Comment Review of Relevant I have reviewed the following items jose manuel (where applicable) has been applied. Medications: Current Medications Medications (Trade) Dose Ordered Sig/Jayesh Route PRN Reason Start Time Stop Time Status Last Admin Dose Admin Morphine Sulfate (Morphine Sulfate) 2 mg PRN Q15MIN PRN IV/SQ PAIN GREATER THAN 3/10 11/15/21 14:15 11/16/21 14:14 11/15/21 15:31 Sodium Chloride 1,000 ml @ 75 mls/hr [id number] IV 11/15/21 17:15 11/16/21 06:35 Justifications for Admission Other Justification EVENS COLIN III DO November 16, 2021 10:40
[2021-11-16] MEDS ORDERED: DEXAMETHASONE SOD PHOS 4 MG/ML VIAL ONE (12:54)
[2021-11-16] MEDS ORDERED: PHENYLEPHRINE in 0.9% NACL PF 1 MG/10 ML SYRINGE. IV ONE ×2 (12:54→16:55)
[2021-11-16] MEDS ORDERED: ONDANSETRON PF 4 MG/2 ML VIAL. ONE (12:54)
[2021-11-16] MEDS ORDERED: LIDOCAINE 2% PF 5 ML VIAL. ONE (12:55)
[2021-11-16] MEDS ORDERED: PROPOFOL 10 MG/ML (20ML) VIAL. IV ONE (12:55)
[2021-11-16] MEDS ORDERED: ROCURONIUM 50 MG/5 ML VIAL. ONE (12:55)
[2021-11-16] MEDS ORDERED: hydrALAZINE 20 MG/ML VIAL. IVP PRN (13:15)
--- NOTE | 2021-11-16 13:17 | PDOC2 ---
AMBER ABDULLAHI DOUBLE SURFACE OPERATOR 11/16/21 1317: CARDIAC CONSULT DATE OF CONSULT Date of Consult DATE: 11/16/21 TIME: 12:57 REASON FOR CONSULT Reason for Consult: Preop eval REFERRING PHYSICIAN Referring Physician: Cammy SOURCE Source: Chart review, Patient HISTORY OF PRESENT ILLNESS HISTORY OF PRESENT ILLNESS This is an 85 yo male [place] [facility]. He has been having left hip pain and fell over a week ago and further imaging noted with acute left femoral neck fracture. Currently his pain is controlled. Mumbles but not talking currently but alert and cooperative. Has not been noted to complain of chest pain or SOA. No acute distress. His daughter in law is the DPOA and told me that he just fell over a week ago but no details to how he fell. No noted syncopal spell. He has significant dementia. No known hx of arrhythmias or CAD nor CVA per DTR in law. PAST MEDICAL HISTORY Cardiovascular: HTN CENTRAL NERVOUS SYSTEM: Dementia Heme/Onc: Cancer (prostate) Psych: Anxiety Musculoskeletal: Osteoarthritis Renal/: Prostate Ca. Endocrine: Diabetes (2) PAST SURGICAL HISTORY Past Surgical History: Arthroscopy (knee) FAMILY HISTORY Family History: Family History Unknown SOCIAL HISTORY Smoke: No ALCOHOL: none Drugs: None [place]: [place] CURRENT MEDICATIONS CURRENT MEDICATIONS Current Medications Medications (Trade) Dose Ordered Sig/Jayesh Route PRN Reason Start Time Stop Time Status Last Admin Dose Admin Morphine Sulfate (Morphine Sulfate) 2 mg PRN Q15MIN PRN IV/SQ PAIN GREATER THAN 3/10 11/15/21 14:15 11/16/21 14:14 11/15/21 15:31 Sodium Chloride 1,000 ml @ 75 mls/hr [id number] IV 11/15/21 17:15 11/16/21 06:35 ALLERGIES ALLERGIES: Coded Allergies: lisinopril (Unverified Allergy, Unknown, Unknown, 11/15/21) REPORTED BY REHAB FACILITY, [facility]. meloxicam (Unverified Allergy, Unknown, Unknown, 11/15/21) REPORTED BY REHAB FACILITY, [facility]. ROS Review of System limited, poor historian PHYSICAL EXAM General: Alert, Cooperative, No acute distress HEENT: Atraumatic, Mucous membr. moist/pink Lungs: Clear to auscultation, Normal air movement Heart: Regular rate, Normal S1, Normal S2, No murmurs Abdomen: Soft, No tenderness Extremities: No cyanosis, No edema Skin: No breakdown, No significant lesion Neuro: Sensation intact Psych/Mental Status: Other (flat affect, nonverbal so far) MUSCULOSKELETAL: Osteoarthritic changes both hands, Other (left hip fracture) VITALS/I&O VITALS/I&O: Vital Signs Date Time Temp Pulse Resp B/P (MAP) Pulse Ox O2 Delivery O2 Flow Rate FiO2 11/16/21 11:00 97.8 86 18 141/67 (91) 97 Room Air 97.8 LABS Lab: Laboratory Tests Test 11/15/21 14:07 11/15/21 14:40 11/15/21 14:49 11/15/21 18:37 White Blood Count 8.7 x10^3/uL (4.0-11.0) Red Blood Count 3.12 x10^6/uL (4.30-5.70) L Hemoglobin 9.6 g/dL (13.0-17.5) L Hematocrit 28.5 % (39.0-53.0) L Mean Corpuscular Volume 91 fL (79-100) Mean Corpuscular Hemoglobin 31 pg (25-35) Mean Corpuscular Hemoglobin Concent 34 g/dL (31-37) Red Cell Distribution Width 14.5 % (11.5-14.5) Platelet Count 310 x10^3/uL (140-400) Neutrophils (%) (Auto) 70 % (31-73) Lymphocytes (%) (Auto) 16 % (24-48) L Monocytes (%) (Auto) 10 % (0-9) H Eosinophils (%) (Auto) 4 % (0-3) H Basophils (%) (Auto) 0 % (0-3) Neutrophils # (Auto) 6.1 x10^3/uL (1.8-7.7) Lymphocytes # (Auto) 1.4 x10^3/uL (1.0-4.8) Monocytes # (Auto) 0.9 x10^3/uL (0.0-1.1) Eosinophils # (Auto) 0.3 x10^3/uL (0.0-0.7) Basophils # (Auto) 0.0 x10^3/uL (0.0-0.2) Prothrombin Time 14.4 SEC (11.7-14.0) H Prothrombin Time INR 1.2 (0.8-1.1) H Activated Partial Thromboplast Time 33 SEC (24-38) Sodium Level 135 mmol/L (136-145) L Potassium Level 4.4 mmol/L (3.5-5.1) Chloride Level 99 mmol/L (98-107) Carbon Dioxide Level 29 mmol/L (21-32) Anion Gap 7 (6-14) Blood Urea Nitrogen 24 mg/dL (8-26) Creatinine 1.0 mg/dL (0.7-1.3) Estimated GFR (Cockcroft-Gault) 71.0 BUN/Creatinine Ratio 24 (6-20) H Glucose Level 259 mg/dL (70-99) H Calcium Level 8.8 mg/dL (8.5-10.1) Magnesium Level 1.9 mg/dL (1.8-2.4) Total Bilirubin 0.4 mg/dL (0.2-1.0) Aspartate Amino Transferase (AST) 18 U/L (15-37) Alanine Aminotransferase (ALT) 23 U/L (16-63) Alkaline Phosphatase 92 U/L (46-116) Troponin I High Sensitivity 20 ng/L (4-75) 23 ng/L (4-75) AU-Jfj-G-Type Natriuretic Peptide 181 pg/mL (0-449) Total Protein 6.3 g/dL (6.4-8.2) L Albumin 2.6 g/dL (3.4-5.0) L Albumin/Globulin Ratio 0.7 (1.0-1.7) L SARS-CoV-2 Antigen (Rapid) Negative (NEGATIVE) Urine Collection Type Unknown Urine Color (Auto) Light yellow Urine Turbidity Clear Urine pH (Auto) 5.5 (<5.0-8.0) Urine Specific [place] 1.019 (1.000-1.030) Urine Protein (Auto) Negative mg/dL (Negative) Urine Glucose (Auto)(UA) >=1000 mg/dL (Negative) Urine Ketones (Auto) Negative mg/dL (Negative) Urine Blood (Auto) Negative (Negative) Urine Nitrite Negative (Negative) Urine Bilirubin (Auto) Negative (Negative) Urine Urobilinogen (Auto) 2 mg/dL (Normal) Urine Leukocyte Esterase (Auto) Negative (Negative) Urine RBC 6-10 /HPF (0-2) Urine WBC Occ /HPF (0-4) Urine Squamous Epithelial Cells Many /LPF Urine Bacteria Few /HPF (0-FEW) Urine Mucus Slight /LPF Test 11/16/21 08:08 11/16/21 11:37 Glucose (Fingerstick) 152 mg/dL (70-99) H 161 mg/dL (70-99) H Laboratory Tests 11/15/21 14:07 Laboratory Tests 11/15/21 14:07 ASSESSMENT/PLAN ASSESSMENT/PLAN 1. Traumatic mechanical fall: no known syncopal event as described 2. Acute displace left femoral neck fracture 3. HTN: labile episodes 4. EKG noted SR with RBBB/ LAFB: 5. Dementia Recommendations 1. TTE 2. Pending TTE result, he is low risk for perioperative CV events for noncardiac surgery 3. Hydralazine IV PRN while NPO TIGRE WRIGHT MD 11/16/21 1403: CARDIAC CONSULT ASSESSMENT/PLAN ASSESSMENT/PLAN Patient seen and examined. Agree with LIGHT EQUIPMENT OPERATOR's assessment and plan. Fall mechanical without any syncope Orthopedics team planning surgical fixation of left femoral neck fracture Check 2D echo to assess LV systolic function prior to cardiac clearance for surgery Thank you. AMBER ABDULLAHI APRN November 16, 2021 13:17 TIGRE WRIGHT MD November 16, 2021 14:03
[2021-11-16] MEDS ORDERED: ALBUMIN HUMAN 5% 500 ML IV ONE (14:30)
[2021-11-16] MEDS ORDERED: VANCOMYCIN 1 GM VIAL. ONE (14:59)
[2021-11-16 15:06] LABS: PROTHROMBIN TIME PATIENT 14.1 SEC (11.7-14.0)
[2021-11-16] MEDS ORDERED: BUPIVACAINE MPF 0.75% 30 ML VIAL. ONE (15:22)
[2021-11-16] MEDS ORDERED: IV RINGERS,LACTATED 1000ML 1,000 ML IV SCH (15:30)
[2021-11-16] MEDS ORDERED: MORPHINE SULFATE 2 MG/ML INJ. IVP PRN (15:30)
[2021-11-16] MEDS ORDERED: HYDROmorphone 2 MG/ML INJ. IVP PRN (15:30)
[2021-11-16] MEDS ORDERED: PROCHLORPERAZINE 10 MG/2 ML VIAL. IVP PRN (15:30)
[2021-11-16] MEDS ORDERED: fentaNYL PF VIAL 100 MCG/2 ML VIAL IVP PRN ×2 (15:30)
[2021-11-16] MEDS ORDERED: ceFAZolin SODIUM IV Push 1 GM VIAL. IVP ONE ×2 (16:00→16:01)
[2021-11-16] MEDS ORDERED: TRANEXAMIC ACID in NS IVPB 100 ML ONE (16:05)
--- NOTE | 2021-11-16 16:22 | NUR ---
Voicemail left for ALFONSO Yates re: incorrect name on medical cards and on [facility] chart.
--- NOTE | 2021-11-16 17:54 | PDOC4 ---
BRIEF OPERATIVE NOTE Pre-Op Diagnosis L hip femoral neck fracture-subacute Post-Op Diagnosis same Procedure Performed Left hip hemiarthroplasty Surgeon Wendy Loya MD Equipment Service Technician REBECCA Christina-Samanta Blood Loss 200cc Specimens Obtained none Findings Left femoral neck fracture, subacute Complications none Operative Note To follow Implants used: Graeme echo bimetric stem-10 and ringloc bipolar-51 RAUDEL JUAREZ November 16, 2021 17:54
[2021-11-16] MEDS: RIVAROXABAN 10 MG TABLET. PO SCH (18:15)
--- NOTE | 2021-11-16 18:34 | NUR ---
Pt. back from PACU via bed, family at bedside. Pt. refusing to take PO and keeping hand to mouth. Refusing to straighten arm at this time to resume IVF. Pt. does not appear to be in any pain.
--- NOTE | 2021-11-16 19:04 | NUR ---
DPOA paperwork faxed to registration for name correction in the system.
--- NOTE | 2021-11-16 23:50 | OP ---
DATE OF SURGERY: 11/16/2021 PREOPERATIVE DIAGNOSES: 1. Dementia. 2. Osteoporosis. 3. History of prostate cancer. 4. Frailty. 5. Left femoral neck fracture. POSTOPERATIVE DIAGNOSIS: 1. Dementia. 2. Osteoporosis. 3. History of prostate cancer. 4. Frailty. 5. Left femoral neck fracture. PROCEDURES: 1. Left hip hemiarthroplasty. 2. Application of Prevena incisional VAC. SURGEON: Wendy Loya MD ANESTHESIA: REBECCA Garcia ANESTHESIA: Spinal plus IV sedation. COMPLICATIONS: None. ESTIMATED BLOOD LOSS: 200 mL. IMPLANTS USED: 1. Graeme Echo stem, size 10 press-fit. 2. Graeme -6 neck. 3. Graeme 51 outer diameter bipolar head. 4. 1 gram of powdered vancomycin. INDICATIONS FOR PROCEDURE: The patient is an 85-year-old male who resides in a intermediate. He fell on approximately 11/06, but it was not noticed that he had hip pain until yesterday. He was brought to the ER and the aforementioned diagnosis made. The patient's [id number] was given risks, benefits, complications and alternatives and wanted him to undergo the procedure on an urgent basis. DESCRIPTION OF PROCEDURE: Once the correct operative site was identified and informed consent was obtained, the patient was taken back to the operating suite in supine position. The spinal anesthesia was administered and a timeout was done. The patient was identified as the patient and the left side was identified as correct operative site. He was given preoperative antibiotic prophylaxis and gently placed in the right lateral decubitus position with all bony prominences padded. Left lower extremity was then prepped and draped in a sterile fashion after pre-prep was done. A standard anterolateral approach was made to the hip through about a 6-inch incision. Sharp dissection was carried through skin and further dissection taken down to the fascia using cautery and tenotomies. The IT band fascia was opened up for the length of the skin incision. This exposed the gluteus medius tendon. The anterior one-third of the medius was reflected anteriorly in line with the vastus lateralis. The capsule was opened and the fracture was identified. It was clearly subacute and the fractured neck had been eroding into the proximal femur. An oscillating saw was used to cut the neck. The head and neck were then removed from the acetabulum. The head measured at 52 on the back table. We used a 51 outer diameter. The leg was placed in the hip and a sterile hip drape anteriorly. REBECCA Mayo controlled the leg. The opening reamer was inserted down into the femur to find the canal. A Mashwork cutter was used to remove the lateral cortex so that the stem could be lateralized. The femur was then broached from a size 7 to a size 10, which provided nice fit and fill. The -6 neck and a 51 head were trialed and this provided good stability, soft tissue tensioning and limb lengths. The hip was then dislocated again with Chel's help. The trial components were removed. The wound was thoroughly irrigated. Vancomycin was placed in the stem and in the base portion of the wound. The final stem was then inserted and gently tapped into place. The final bipolar head was then impacted onto the stem and the hip was reduced with Chel's help. Again, it was taken through range of motion and was stable. The wound was thoroughly irrigated again. #1 Vicryl was used to reapproximate the gluteus medius and vastus lateralis. The IT band was reapproximated with #1 Vicryl and then closed definitively with #1 Stratafix. 2-0 Monocryl was used to reapproximate the skin edges, which were closed finally with a running subcuticular Monocryl. A Prevena incisional VAC was applied. The patient tolerated the procedure well. He was awakened from IV sedation, having tolerated it well and was taken in stable condition to postoperative care unit under care of anesthesia. POSTOPERATIVE PLAN: Weightbearing as tolerated. No restrictions including no position restrictions. He will have 24 hours prophylactic antibiotic. DVT prophylaxis will be started tomorrow and should be placed for 90 days. Follow up with me in 2 weeks. Please call my office number at [phone]. REBECCA Garcia, was present for patient positioning, helped with hip reduction and dislocation, helped the soft tissue retraction and closure. Her presence made the case go more efficiently and therefore more safely. ANIKET/HEATHER DR: Pritesh TID: [id number]
[2021-11-17 03:00] VITALS: BP 177/81
[2021-11-17] MEDS: ceFAZolin SODIUM IV Push 1 GM VIAL. IVP SCH ×3 (05:12→06:00)
[2021-11-17 07:00] VITALS: BP 154/77
[2021-11-17 07:13] LABS: BASO % 0 % (0-3); EOS % 0 % (0-3); HEMATOCRIT 29.1 % (39.0-53.0); HEMOGLOBIN 9.7 g/dL (13.0-17.5); LYMPH # 0.9 x10^3/uL (1.0-4.8); LYMPH % 11 % (24-48); MEAN CORPUSCULAR HEMOGLOBIN 31 pg (25-35); MEAN CORPUSCULAR HGB CONC 33 g/dL (31-37); MEAN CORPUSCULAR VOLUME 92 fL (79-100); MONO # 0.9 x10^3/uL (0.0-1.1); MONO % 12 % (0-9); NEUT # 6.2 x10^3/uL (1.8-7.7); NEUT % 77 % (31-73); PLATELET COUNT 400 x10^3/uL (140-400); RED BLOOD COUNT 3.15 x10^6/uL (4.30-5.70); RED CELL DISTRIBUTION WIDTH 13.6 % (11.5-14.5)
--- NOTE | 2021-11-17 08:14 | PDOC ---
[employer] PROGRESS NOTE Date of Service DOS: DATE: 11/17/21 TIME: 08:12 Chief Complaint Chief Complaint Postop day 1 left hip fracture ORIF Fall with left hip fracture History of the following; Dementia, hypertension, and diabetes. History of Present Illness History of Present Illness 11/17/2021 Patient seen and examined He is postop day 1 He is resting with no apparent distress Opens his eyes but no meaningful speech this morning Discussed with RN Chart reviewed I resumed his home medications Awaiting possible discharge to penitentiary 11/16/2021 Patient seen and examined Discussed with RN Chart reviewed He is possibly going to surgery today Vitals/I&O Vitals/I&O: Vital Signs Date Time Temp Pulse Resp B/P (MAP) Pulse Ox O2 Delivery O2 Flow Rate FiO2 11/17/21 07:39 Room Air 11/17/21 07:00 98.1 78 16 154/77 (102) 93 98.1 11/16/21 18:00 2.0 I & O 11/16/21 11/16/21 11/17/21 15:00 23:00 07:00 Intake Total 0 ml 1740 ml 120 ml Output Total 200 ml Balance 0 ml 1540 ml 120 ml Physical Exam General: Alert, Cooperative, No acute distress Heart: Regular rate, Normal S1, Normal S2, No murmurs Abdomen: Soft, No tenderness Extremities: No cyanosis, No edema Skin: No breakdown, No significant lesion Labs Labs: Laboratory Tests Test 11/16/21 11:37 11/16/21 14:40 11/16/21 21:27 11/17/21 06:00 Glucose (Fingerstick) 161 mg/dL (70-99) 164 mg/dL (70-99) Prothrombin Time 14.1 SEC (11.7-14.0) Prothromb Time International Ratio 1.1 (0.8-1.1) White Blood Count 8.0 x10^3/uL (4.0-11.0) Red Blood Count 3.15 x10^6/uL (4.30-5.70) Hemoglobin 9.7 g/dL (13.0-17.5) Hematocrit 29.1 % (39.0-53.0) Mean Corpuscular Volume 92 fL (79-100) Mean Corpuscular Hemoglobin 31 pg (25-35) Mean Corpuscular Hemoglobin Concent 33 g/dL (31-37) Red Cell Distribution Width 13.6 % (11.5-14.5) Platelet Count 400 x10^3/uL (140-400) Neutrophils (%) (Auto) 77 % (31-73) Lymphocytes (%) (Auto) 11 % (24-48) Monocytes (%) (Auto) 12 % (0-9) Eosinophils (%) (Auto) 0 % (0-3) Basophils (%) (Auto) 0 % (0-3) Neutrophils # (Auto) 6.2 x10^3/uL (1.8-7.7) Lymphocytes # (Auto) 0.9 x10^3/uL (1.0-4.8) Monocytes # (Auto) 0.9 x10^3/uL (0.0-1.1) Eosinophils # (Auto) 0.0 x10^3/uL (0.0-0.7) Basophils # (Auto) 0.0 x10^3/uL (0.0-0.2) Test 11/17/21 07:27 Glucose (Fingerstick) 199 mg/dL (70-99) Assessment and Plan Assessmemt and Plan Problems Medical Problems: (1) Fall Status: Acute (2) Femoral neck fracture Status: Acute Fall with left hip fracture History of the following; Dementia, hypertension, and diabetes. Plan Wound care PT OT Home meds DVT prophylaxis Full code As needed pain meds He probably needs penitentiary Comment Review of Relevant I have reviewed the following items jose manuel (where applicable) has been applied. Medications: Current Medications Medications (Trade) Dose Ordered Sig/Jayesh Route PRN Reason Start Time Stop Time Status Last Admin Dose Admin Albumin Human 500 ml @ 125 mls/hr 1X ONCE IV 11/16/21 14:30 11/16/21 18:29 DC 11/16/21 14:44 Vancomycin HCl (Vancomycin) 1 gm STK-MED ONCE .ROUTE 11/16/21 14:59 11/16/21 14:59 DC 11/16/21 17:09 Ringer's Solution 1,000 ml @ 30 mls/hr Q24H IV 11/16/21 15:30 11/17/21 03:29 DC 11/16/21 15:00 Cefazolin Sodium (Ancef) 1 gm Q8HRS IVP 11/16/21 22:00 11/17/21 06:01 DC 11/17/21 05:12 Justifications for Admission Other Justification EVENS COLIN III DO November 17, 2021 08:14
[2021-11-17] MEDS ORDERED: oxyCODONE/APAP 5/325 1 TAB TABLET PO PRN (08:15)
[2021-11-17] MEDS ORDERED: hydrALAZINE 10 MG TABLET PO PRN (08:15)
[2021-11-17] MEDS ORDERED: ACETAMINOPHEN 325 MG TABLET. PO PRN (08:30)
[2021-11-17] MEDS ORDERED: POLYVINYL ALCOHOL 1.4% OPHTH SOLUTION 15ML BOTTLE. OU PRN (08:30)
[2021-11-17] MEDS: LIDOCAINE (700MG/PATCH) PATCH. TP SCH (09:00)
[2021-11-17] MEDS ORDERED: LIDOCAINE TP SCH (09:00)
[2021-11-17] MEDS: IV NORMAL SALINE 1000ML BAG 1,000 ML IV SCH ×2 (09:15→17:14)
[2021-11-17] MEDS: ASPIRIN ENTERIC COATED 81 MG TABLET.DR. PO SCH (09:59)
[2021-11-17] MEDS: DULoxetine HCL 30 MG CAPSULE.DR PO SCH (09:59)
[2021-11-17] MEDS: LOSARTAN POTASSIUM 25 MG TABLET. PO SCH (09:59)
[2021-11-17] MEDS: MULTIVITAMIN with MINERAL TABLET. PO SCH (09:59)
[2021-11-17] MEDS: FERROUS SULFATE 325 MG TABLET. PO SCH (09:59)
[2021-11-17] MEDS: ASCORBIC ACID 500 MG TABLET PO SCH ×2 (09:59→21:30)
--- NOTE | 2021-11-17 10:08 | NUR ---
Lidocaine patch held at this time. Pt. unable to verbalize location of patch.
--- NOTE | 2021-11-17 10:43 | PDOC ---
PROGRESS NOTES Date of Service DATE: 11/17/21 TIME: 10:39 Subjective Subjective No new issues. Objective Vital Signs Vital Signs Date Time Temp Pulse Resp B/P (MAP) Pulse Ox O2 Delivery O2 Flow Rate FiO2 11/17/21 09:59 78 154/77 11/17/21 07:39 Room Air 11/17/21 07:00 98.1 16 93 98.1 11/16/21 18:00 2.0 Physical Exam Resting in bed, sitting up. Doesnt answer when I ask him how he is doing. LLE: wont/cant follow commands for an exam BLE: leg lengths symmetric; SCDs and josmeanuel hose on HgB: Labs Laboratory Tests Test 11/15/21 14:07 11/15/21 14:40 11/15/21 14:49 11/15/21 18:37 White Blood Count 8.7 x10^3/uL (4.0-11.0) Red Blood Count 3.12 x10^6/uL (4.30-5.70) Hemoglobin 9.6 g/dL (13.0-17.5) Hematocrit 28.5 % (39.0-53.0) Mean Corpuscular Volume 91 fL (79-100) Mean Corpuscular Hemoglobin 31 pg (25-35) Mean Corpuscular Hemoglobin Concent 34 g/dL (31-37) Red Cell Distribution Width 14.5 % (11.5-14.5) Platelet Count 310 x10^3/uL (140-400) Neutrophils (%) (Auto) 70 % (31-73) Lymphocytes (%) (Auto) 16 % (24-48) Monocytes (%) (Auto) 10 % (0-9) Eosinophils (%) (Auto) 4 % (0-3) Basophils (%) (Auto) 0 % (0-3) Neutrophils # (Auto) 6.1 x10^3/uL (1.8-7.7) Lymphocytes # (Auto) 1.4 x10^3/uL (1.0-4.8) Monocytes # (Auto) 0.9 x10^3/uL (0.0-1.1) Eosinophils # (Auto) 0.3 x10^3/uL (0.0-0.7) Basophils # (Auto) 0.0 x10^3/uL (0.0-0.2) Prothrombin Time 14.4 SEC (11.7-14.0) Prothromb Time International Ratio 1.2 (0.8-1.1) Activated Partial Thromboplast Time 33 SEC (24-38) Sodium Level 135 mmol/L (136-145) Potassium Level 4.4 mmol/L (3.5-5.1) Chloride Level 99 mmol/L (98-107) Carbon Dioxide Level 29 mmol/L (21-32) Anion Gap 7 (6-14) Blood Urea Nitrogen 24 mg/dL (8-26) Creatinine 1.0 mg/dL (0.7-1.3) Estimated GFR (Cockcroft-Gault) 71.0 BUN/Creatinine Ratio 24 (6-20) Glucose Level 259 mg/dL (70-99) Calcium Level 8.8 mg/dL (8.5-10.1) Magnesium Level 1.9 mg/dL (1.8-2.4) Total Bilirubin 0.4 mg/dL (0.2-1.0) Aspartate Amino Transf (AST/SGOT) 18 U/L (15-37) Alanine Aminotransferase (ALT/SGPT) 23 U/L (16-63) Alkaline Phosphatase 92 U/L (46-116) Troponin I High Sensitivity 20 ng/L (4-75) 23 ng/L (4-75) WD-Fbf-X-Type Natriuretic Peptide 181 pg/mL (0-449) Total Protein 6.3 g/dL (6.4-8.2) Albumin 2.6 g/dL (3.4-5.0) Albumin/Globulin Ratio 0.7 (1.0-1.7) SARS-CoV-2 Antigen (Rapid) Negative (NEGATIVE) Urine Collection Type Unknown Urine Color (Auto) Light yellow Urine Turbidity Clear Urine pH (Auto) 5.5 (<5.0-8.0) Urine Specific [place] 1.019 (1.000-1.030) Urine Protein (Auto) Negative mg/dL (Negative) Urine Glucose (Auto)(UA) >=1000 mg/dL (Negative) Urine Ketones (Auto) Negative mg/dL (Negative) Urine Blood (Auto) Negative (Negative) Urine Nitrite Negative (Negative) Urine Bilirubin (Auto) Negative (Negative) Urine Urobilinogen (Auto) 2 mg/dL (Normal) Urine Leukocyte Esterase (Auto) Negative (Negative) Urine RBC 6-10 /HPF (0-2) Urine WBC Occ /HPF (0-4) Urine Squamous Epithelial Cells Many /LPF Urine Bacteria Few /HPF (0-FEW) Urine Mucus Slight /LPF Test 11/16/21 08:08 11/16/21 11:37 11/16/21 14:40 11/16/21 21:27 Glucose (Fingerstick) 152 mg/dL (70-99) 161 mg/dL (70-99) 164 mg/dL (70-99) Prothrombin Time 14.1 SEC (11.7-14.0) Prothromb Time International Ratio 1.1 (0.8-1.1) Test 11/17/21 06:00 11/17/21 07:27 White Blood Count 8.0 x10^3/uL (4.0-11.0) Red Blood Count 3.15 x10^6/uL (4.30-5.70) Hemoglobin 9.7 g/dL (13.0-17.5) Hematocrit 29.1 % (39.0-53.0) Mean Corpuscular Volume 92 fL (79-100) Mean Corpuscular Hemoglobin 31 pg (25-35) Mean Corpuscular Hemoglobin Concent 33 g/dL (31-37) Red Cell Distribution Width 13.6 % (11.5-14.5) Platelet Count 400 x10^3/uL (140-400) Neutrophils (%) (Auto) 77 % (31-73) Lymphocytes (%) (Auto) 11 % (24-48) Monocytes (%) (Auto) 12 % (0-9) Eosinophils (%) (Auto) 0 % (0-3) Basophils (%) (Auto) 0 % (0-3) Neutrophils # (Auto) 6.2 x10^3/uL (1.8-7.7) Lymphocytes # (Auto) 0.9 x10^3/uL (1.0-4.8) Monocytes # (Auto) 0.9 x10^3/uL (0.0-1.1) Eosinophils # (Auto) 0.0 x10^3/uL (0.0-0.7) Basophils # (Auto) 0.0 x10^3/uL (0.0-0.2) Glucose (Fingerstick) 199 mg/dL (70-99) Laboratory Tests Test 11/16/21 11:37 11/16/21 14:40 11/16/21 21:27 11/17/21 06:00 Glucose (Fingerstick) 161 mg/dL (70-99) 164 mg/dL (70-99) Prothrombin Time 14.1 SEC (11.7-14.0) Prothromb Time International Ratio 1.1 (0.8-1.1) White Blood Count 8.0 x10^3/uL (4.0-11.0) Red Blood Count 3.15 x10^6/uL (4.30-5.70) Hemoglobin 9.7 g/dL (13.0-17.5) Hematocrit 29.1 % (39.0-53.0) Mean Corpuscular Volume 92 fL (79-100) Mean Corpuscular Hemoglobin 31 pg (25-35) Mean Corpuscular Hemoglobin Concent 33 g/dL (31-37) Red Cell Distribution Width 13.6 % (11.5-14.5) Platelet Count 400 x10^3/uL (140-400) Neutrophils (%) (Auto) 77 % (31-73) Lymphocytes (%) (Auto) 11 % (24-48) Monocytes (%) (Auto) 12 % (0-9) Eosinophils (%) (Auto) 0 % (0-3) Basophils (%) (Auto) 0 % (0-3) Neutrophils # (Auto) 6.2 x10^3/uL (1.8-7.7) Lymphocytes # (Auto) 0.9 x10^3/uL (1.0-4.8) Monocytes # (Auto) 0.9 x10^3/uL (0.0-1.1) Eosinophils # (Auto) 0.0 x10^3/uL (0.0-0.7) Basophils # (Auto) 0.0 x10^3/uL (0.0-0.2) Test 11/17/21 07:27 Glucose (Fingerstick) 199 mg/dL (70-99) Assessment Assessment POD# 1 L milagros Plan Plan of Care No restrictions, including no restrictions in positioning. Prevena until battery dies (7-10 days) I spoke with nurse about getting formula room worker socks on him. Given his dementia, if he gets oob, he'll slip and fall with the josemanuel hose. F/u in 2 wks, please call for appt at [phone]. Thank you. Justicifation of Admission Dx: Justifications for Admission: Justification of Admission Dx: Yes Fracture: Fracture MILTON CAMPUZANO MD November 17, 2021 10:43
[2021-11-17 11:00] VITALS: BP 122/59
--- NOTE | 2021-11-17 11:49 | EKG ---
[facility] [address] [place] [address] Test Date: 2021-11-15 Test Time: 14:07:09 Pat Name: PAULA WASSERMAN Department: Room: [facility] Gender: M Staff Sonographer: : 1936-04-11 Requested By: ANDREEA MANCIA Order Number: [id number] Reading MD: Christian Gautam Measurements Intervals [place] Rate: 83 P: NE: QRS: -27 QRSD: 114 T: 62 QT: 392 QTc: 461 Interpretive Statements PROBABLE SINUS RHYTHM LEFT ANTERIOR FASCICULAR BLOCK Electronically Signed On 11-19-2021 10:44:59 CDT by Christian Gautam
--- NOTE | 2021-11-17 12:30 | CARD ---
MR#: [id number] Date of Study: 11/17/2021 Ordering Physician: AMBER ABDULLAHI, Referring Physician: Jaguar WOODSON: Jluis Beasley [facility] APPROVED REPORT EXAM: Two-dimensional and M-mode echocardiogram with Doppler and color Doppler. Other Information Quality : PoorHR: 99bpm Rhythm : NSRTechnically limited study due to smoking and hip fracture. INDICATION Pre-Op S/P Hip fracture and repair. RISK FACTORS Smoking LEFT VENTRICLE The left ventricle is not well visualized. Technically difficult study. Left ventricle systolic funct ion appears to be normal. Endocardium poorly visualized and hence cannot rule out wall motion abnorma lities. RIGHT VENTRICLE The right ventricle is normal size. The right ventricular systolic function is normal. ATRIA The left atrium is not well visualized. The right atrium is not well visualized. Interatrial septum n ot well visualized. AORTIC VALVE The aortic valve was not well seen. MITRAL VALVE The mitral valve is not well seen. TRICUSPID VALVE The tricuspid valve is not well seen. PULMONIC VALVE The pulmonic valve is not well seen. GREAT VESSELS The aortic root could not be assessed. The ascending aorta was not well seen. Subcostal views were ab sent so the IVC was not seen. PERICARDIAL EFFUSION There is no evidence of significant pericardial effusion. Critical Notification Critical Value: No <Conclusion> Technically very difficult study with limited views. Left ventricle systolic function appears to be grossly normal. Endocardium poorly visualized and hence cannot rule out wall motion abnormalities. Valves not well visualized. There is no evidence of significant pericardial effusion. Signed by : Ramírez Rodrigez, Electronically Approved : 11/17/2021 12:30:00
--- NOTE | 2021-11-17 12:34 | PDOC ---
AMBER ABDULLAHI STAFF FIELD ENGINEER 11/17/21 1233: CARDIO Progress Notes Date and Time Date of Service 11/17/2021 Time of Evaluation 1200 Subjective Subjective: No shortness of breath, Other (mumbles, it appears surgical pain is controlled) Vitals Vitals Vital Signs Date Time Temp Pulse Resp B/P (MAP) Pulse Ox O2 Delivery O2 Flow Rate FiO2 11/17/21 11:00 98.1 97 18 122/59 (80) 97 Room Air 98.1 11/16/21 18:00 2.0 Weight Weight [ ] Input and Output Intake and Output Intake and Output 11/17/21 07:00 Intake Total 1860 ml Output Total 200 ml Balance 1660 ml Intake Oral 360 ml IV Total 1500 ml Output Estimated Blood Loss 200 ml # Voids 6 Laboratory Labs Laboratory Tests Test 11/16/21 14:40 11/16/21 21:27 11/17/21 06:00 11/17/21 07:27 Prothrombin Time 14.1 SEC (11.7-14.0) Prothromb Time International Ratio 1.1 (0.8-1.1) Glucose (Fingerstick) 164 mg/dL (70-99) 199 mg/dL (70-99) White Blood Count 8.0 x10^3/uL (4.0-11.0) Red Blood Count 3.15 x10^6/uL (4.30-5.70) Hemoglobin 9.7 g/dL (13.0-17.5) Hematocrit 29.1 % (39.0-53.0) Mean Corpuscular Volume 92 fL (79-100) Mean Corpuscular Hemoglobin 31 pg (25-35) Mean Corpuscular Hemoglobin Concent 33 g/dL (31-37) Red Cell Distribution Width 13.6 % (11.5-14.5) Platelet Count 400 x10^3/uL (140-400) Neutrophils (%) (Auto) 77 % (31-73) Lymphocytes (%) (Auto) 11 % (24-48) Monocytes (%) (Auto) 12 % (0-9) Eosinophils (%) (Auto) 0 % (0-3) Basophils (%) (Auto) 0 % (0-3) Neutrophils # (Auto) 6.2 x10^3/uL (1.8-7.7) Lymphocytes # (Auto) 0.9 x10^3/uL (1.0-4.8) Monocytes # (Auto) 0.9 x10^3/uL (0.0-1.1) Eosinophils # (Auto) 0.0 x10^3/uL (0.0-0.7) Basophils # (Auto) 0.0 x10^3/uL (0.0-0.2) Test 11/17/21 12:01 Glucose (Fingerstick) 206 mg/dL (70-99) Physical Exam HEENT: Neck Supple W Full Motion Chest: Symmetric LUNGS: Clear to Auscultation Heart: RRR Abdomen: Soft N/T Extremities: No Edema, Other (left hip incisiondressing intact) Neurology: alert, confused, other (mumbles) Assessment Assessment 1. Traumatic mechanical fall: no known syncopal event as described 2. Acute displace left femoral neck fracture; S/P Left hip hemiarthroplasty POD#1. tolerated procedure well 3. HTN: now controlled 4. EKG noted SR with RBBB/ LAFB: 5. Significant Dementia Recommendations 1. Await TTE result 2. Hydralazine IV PRN> losartan PO started 3. Nothing further cardiac del rio Justicifation of Admission Dx: Justifications for Admission: Justification of Admission Dx: Yes Fracture: Fracture TIGRE WRIGHT MD 11/17/21 1805: CARDIO Progress Notes Assessment Assessment Patient seen and examined. Agree with BUSINESS SERVICES OFFICER's assessment and plan. Fall mechanical without any syncope 2D echo technically difficult but appeared to show normal LV systolic function Continue post op care per ortho team AMBER ABDULLAHI APRN November 17, 2021 12:33 TIGRE WRIGHT MD November 17, 2021 18:05
[2021-11-17] MEDS ORDERED: DEXTROSE 50% 25 GM / 50ML DISP.SYRIN. IV PRN (12:45)
[2021-11-17] MEDS: HYDROcodone/APAP 5/325MG 1 TAB TABLET PO PRN (13:04)
[2021-11-17] MEDS: INSULIN LISPRO 300 UNITS/3 ML VIAL. SQ SCH ×2 (13:05→17:21)
--- NOTE | 2021-11-17 13:40 | NUR ---
Spoke wit Dr. Chawla re: code status in the computer and verified with HELDER Tran of DNR status. Telephone orders received per Dr. Chawla.
[2021-11-17] MEDS ORDERED: ceFAZolin SODIUM IV Push 1 GM VIAL. IVP ONE (14:00)
[2021-11-17 15:00] VITALS: BP 140/62
--- NOTE | 2021-11-17 16:04 | RAD ---
Exam: XR PELVIS 1-2V History: Postop. Comparison: 11/15/2021 Findings: Postsurgical changes from left hip hemiarthroplasty with well-seated femoral stem. Femoral head compo nent is normally positioned in the acetabulum. Mild degenerative changes of the right hip. Atheroscle rotic vascular calcifications. Surgical the tube projects over the pubic symphysis. Expected subcutan eous swelling overlying the left hip consistent with recent instrumentation. Impression: 1. Left hip hemiarthroplasty without evidence of complication. Electronically signed by: Eric Fuentes MD (11/17/2021 4:02 PM) [id number]
[2021-11-17] MEDS: RIVAROXABAN 10 MG TABLET. PO SCH (17:13)
[2021-11-17 19:00] VITALS: BP 133/67
[2021-11-17 23:00] VITALS: BP 141/72
[2021-11-18 03:00] VITALS: BP 137/53
[2021-11-18 07:00] VITALS: BP 147/64
[2021-11-18] MEDS: ASPIRIN ENTERIC COATED 81 MG TABLET.DR. PO SCH (08:15)
[2021-11-18] MEDS: DULoxetine HCL 30 MG CAPSULE.DR PO SCH (08:15)
[2021-11-18] MEDS: LOSARTAN POTASSIUM 25 MG TABLET. PO SCH (08:15)
[2021-11-18] MEDS: MULTIVITAMIN with MINERAL TABLET. PO SCH (08:15)
[2021-11-18] MEDS: LIDOCAINE (700MG/PATCH) PATCH. TP SCH (08:16)
[2021-11-18] MEDS: ASCORBIC ACID 500 MG TABLET PO SCH ×2 (08:16→20:48)
[2021-11-18] MEDS: INSULIN LISPRO 300 UNITS/3 ML VIAL. SQ SCH ×3 (08:22→17:28)
[2021-11-18] MEDS: IV NORMAL SALINE 1000ML BAG 1,000 ML IV SCH ×2 (08:45→21:30)
--- NOTE | 2021-11-18 10:20 | PDOC ---
[facility] [facility] PROGRESS NOTE Date of Service DOS: DATE: 11/18/21 TIME: 10:19 Chief Complaint Chief Complaint Postop day 2 left hip fracture ORIF Fall with left hip fracture History of the following; Dementia, hypertension, and diabetes. History of Present Illness History of Present Illness 11/18/2021 Patient seen and examined Discussed with RN Chart reviewed Discussed with case management 11/17/2021 Patient seen and examined He is postop day 1 He is resting with no apparent distress Opens his eyes but no meaningful speech this morning Discussed with RN Chart reviewed I resumed his home medications Awaiting possible discharge to senior living 11/16/2021 Patient seen and examined Discussed with RN Chart reviewed He is possibly going to surgery today Vitals/I&O Vitals/I&O: Vital Signs Date Time Temp Pulse Resp B/P (MAP) Pulse Ox O2 Delivery O2 Flow Rate FiO2 11/18/21 08:15 90 147/64 11/18/21 07:05 Room Air 11/18/21 07:00 100.2 17 92 100.2 I & O 11/17/21 11/17/21 11/18/21 15:00 23:00 07:00 Intake Total 50 ml Balance 50 ml Physical Exam General: Alert, Cooperative, No acute distress Heart: Regular rate, Normal S1, Normal S2, No murmurs Abdomen: Soft, No tenderness Extremities: No cyanosis, No edema Skin: No breakdown, No significant lesion Labs Labs: Laboratory Tests Test 11/17/21 12:01 11/17/21 16:48 11/17/21 21:01 11/18/21 07:55 Glucose (Fingerstick) 206 mg/dL (70-99) 231 mg/dL (70-99) 177 mg/dL (70-99) 160 mg/dL (70-99) Assessment and Plan Assessmemt and Plan Problems Medical Problems: (1) Fall Status: Acute (2) Femoral neck fracture Status: Acute Fall with left hip fracture History of the following; Dementia, hypertension, and diabetes. Plan Wound care PT OT Home meds DVT prophylaxis Full code As needed pain meds Probable discharge to senior living in the morning Comment Review of Relevant I have reviewed the following items jose manuel (where applicable) has been applied. Medications: Current Medications Medications (Trade) Dose Ordered Sig/Jayesh Route PRN Reason Start Time Stop Time Status Last Admin Dose Admin Cefazolin Sodium (Ancef) 1 gm ONCE ONCE IVP 11/17/21 14:00 11/17/21 14:01 DC 11/17/21 14:23 Insulin Human Lispro (HumaLOG) 0-5 UNITS TIDWMEALS SQ 11/17/21 12:45 11/18/21 08:22 Justifications for Admission Other Justification EVENS COLIN III DO November 18, 2021 10:20
[2021-11-18 11:00] VITALS: BP 125/59
--- NOTE | 2021-11-18 12:43 | NUR ---
Pt. asleep, did not eat lunch. Insulin held.
--- NOTE | 2021-11-18 15:03 | NUR ---
Covid PCR collected and sent to lab.
[2021-11-18] MEDS: RIVAROXABAN 10 MG TABLET. PO SCH (17:24)
[2021-11-18 19:15] VITALS: BP 118/51
[2021-11-18 23:22] VITALS: BP 97/48
[2021-11-19 03:10] VITALS: BP 139/57
[2021-11-19 07:10] VITALS: BP 152/72
[2021-11-19] MEDS: INSULIN LISPRO 300 UNITS/3 ML VIAL. SQ SCH ×2 (08:00→12:00)
[2021-11-19] MEDS: DULoxetine HCL 30 MG CAPSULE.DR PO SCH (08:13)
[2021-11-19] MEDS: MULTIVITAMIN with MINERAL TABLET. PO SCH (08:13)
[2021-11-19] MEDS: ASPIRIN ENTERIC COATED 81 MG TABLET.DR. PO SCH (08:14)
[2021-11-19] MEDS: LOSARTAN POTASSIUM 25 MG TABLET. PO SCH (08:14)
[2021-11-19] MEDS: FERROUS SULFATE 325 MG TABLET. PO SCH (08:14)
[2021-11-19] MEDS: ASCORBIC ACID 500 MG TABLET PO SCH (08:14)
[2021-11-19] MEDS: HYDROcodone/APAP 5/325MG 1 TAB TABLET PO PRN (08:15)
[2021-11-19] MEDS: LIDOCAINE (700MG/PATCH) PATCH. TP SCH (08:22)
--- NOTE | 2021-11-19 08:23 | NUR ---
pt refused lidocaine patch this AM
--- NOTE | 2021-11-19 10:12 | PDOC ---
[employer] [facility] PROGRESS NOTE Date of Service DOS: DATE: 11/19/21 TIME: 10:11 Chief Complaint Chief Complaint Postop day 2 left hip fracture ORIF Fall with left hip fracture History of the following; Dementia, hypertension, and diabetes. History of Present Illness History of Present Illness 11/19/2021 Patient seen and examined He seems to be at his baseline Discussed with case management Discussed with RN We will go ahead and discharge to [facility] senior care 11/18/2021 Patient seen and examined Discussed with RN Chart reviewed Discussed with case management 11/17/2021 Patient seen and examined He is postop day 1 He is resting with no apparent distress Opens his eyes but no meaningful speech this morning Discussed with RN Chart reviewed I resumed his home medications Awaiting possible discharge to senior care 11/16/2021 Patient seen and examined Discussed with RN Chart reviewed He is possibly going to surgery today Vitals/I&O Vitals/I&O: Vital Signs Date Time Temp Pulse Resp B/P (MAP) Pulse Ox O2 Delivery O2 Flow Rate FiO2 11/19/21 08:45 18 97 Room Air 11/19/21 08:14 97 139/57 11/19/21 07:10 98.1 98.1 I & O 11/18/21 11/18/21 11/19/21 15:00 23:00 07:00 Intake Total 240 ml 180 ml 60 ml Balance 240 ml 180 ml 60 ml Physical Exam General: Alert, Cooperative, No acute distress Heart: Regular rate, Normal S1, Normal S2, No murmurs Abdomen: Soft, No tenderness Extremities: No cyanosis, No edema Skin: No breakdown, No significant lesion Labs Labs: Laboratory Tests Test 11/18/21 12:10 11/18/21 16:54 11/18/21 21:24 11/19/21 08:03 Glucose (Fingerstick) 192 mg/dL (70-99) 158 mg/dL (70-99) 169 mg/dL (70-99) 132 mg/dL (70-99) Assessment and Plan Assessmemt and Plan Problems Medical Problems: (1) Fall Status: Acute (2) Femoral neck fracture Status: Acute Fall with left hip fracture History of the following; Dementia, hypertension, and diabetes. Plan Discharge to [facility] senior care For now continue the following; Wound care PT OT Home meds DVT prophylaxis Full code As needed pain meds Probable discharge to senior care later today Comment Review of Relevant I have reviewed the following items jose manuel (where applicable) has been applied. Justifications for Admission Other Justification EVENS COLIN III DO November 19, 2021 10:12
[2021-11-19] MEDS ORDERED: OXYC-325 PO (10:14)
[2021-11-19] MEDS ORDERED: RIVA10TA PO (10:14)
--- NOTE | 2021-11-19 10:15 | SNU/HH DC ---
DISCHARGE ORDERS DISCHARGE INFORMATION: FINAL DIAGNOSIS Problems Medical Problems: (1) Fall Status: Acute (2) Femoral neck fracture Status: Acute CONDITION ON DISCHARGE: Stable CODE STATUS: Code Status: DNR/DNI JAIL: SNF STAY <30 DAYS: Yes HOSPICE: HOSPICE: No HOSPICE EVAL & TREAT: No LTAC: ADMIT TO LTAC: No POST DISCHARGE ORDERS: DIET AFTER DISCHARGE: Cardiac TREATMENT/EQUIPMENT ORDERS: Physical Therapy For: Evalulation/Treatment Occupational Therapy For: Evaluation/Treatment Speech Language Pathology For: Evaluation/Treatment DISCHARGE MEDICATIONS: Home Meds Active Scripts Rivaroxaban (XARELTO) 10 Mg Tablet, 10 MG PO DAILYWSUP for . for 30 Days, #30 TAB Prov:CASTLE,NIAL K III DO 11/19/21 Oxycodone HCl/Acetaminophen (Percocet 5-325 mg Tablet) 1 Each Tablet, 1 TAB PO TID PRN PRN for PAIN MDD 2 Tablet(s) for 7 Days, #20 TAB 0 Refills Prov:CASTLE,NIAL K III DO 11/19/21 Reported Medications Duloxetine HCl (Duloxetine HCl) 40 Mg Capsule.dr, 60 MG PO depression and nerve for depression, CAP 11/15/21 Carboxymethylcellulose Sodium (THERA TEARS) 1 Each Droperette, 1 EACH OP PRN Q6HRS PRN for DRY EYE, DROP 11/15/21 Aspirin (ASPIRIN EC) 81 Mg Tablet.dr, 1 TAB PO DAILY for heart circulation, #30 TAB 3 Refills 11/15/21 Ascorbic Acid (ASCORBIC ACID) 500 Mg Tablet, 250 MG PO BID for supplement, TAB 11/15/21 Acetaminophen Er (ACETAMINOPHEN EXT.RELEASE) 650 Mg Tablet.er, 1 TAB PO PRN Q6HRS for pain for 21 Days, TAB 0 Refills 11/15/21 Mv-Mn/Iron/Fa/Herbal Cmplx#190 (VITAMIN D3 COMPLETE CAPLET) 1 Each Tablet, 2000 UNITS PO DAILY for supplement, TAB 11/15/21 Losartan Potassium (LOSARTAN POTASSIUM ) 25 Mg Tablet, 25 MG PO DAILY for HYPERTENSION, TAB 11/15/21 Lidocaine (Lidocaine PATCH ) 1 Each Adh..patch, 1 EACH TP DAILY for FOR LOCAL PAIN, PATCH REMOVE AFTER 12 HOURS 11/15/21 Lidocaine (Lidocaine) 15 Gm Cream..g., 1 MAIA TP TID for pain for 30 Days, GM 0 Refills 11/15/21 Hydralazine Hcl (HYDRALAZINE HCL) 10 Mg Tablet, 1 TAB PO Q12HR PRN for uncontrolled HTN, #60 TAB 3 Refills 11/15/21 Ferrous Sulfate (Ferrous Sulfate) 325 Mg Tablet, 325 MG PO QODAY for supplement, TAB 11/15/21 EVENS COLIN K ELEAZAR DO November 19, 2021 10:15
[2021-11-19 11:00] VITALS: BP 150/70
[2021-11-19 11:27] VITALS: BP 70/57
--- NOTE | 2021-11-19 15:29 | DS ---
DATE OF DISCHARGE: 11/19/2021 ADMITTING DIAGNOSIS: Fall with left hip fracture. DISCHARGE DIAGNOSES: Postoperative day #3, left hip ORIF, history of dementia, hypertension, and diabetes. HOSPITAL COURSE: The patient is a pleasant elderly male who fell and suffered a hip fracture. He was admitted. We have consulted Orthopedics. He was taken for surgery with left hip hemiarthroplasty and application of a Prevena incisional VAC. Today, I saw him and examined him. He is at his baseline. We plan to discharge. DISPOSITION: Back to [facility]. ACTIVITY: As tolerated. DIET: Low sodium. MEDICATIONS: Please see the MRAD. Xarelto 10 a day, p.r.n. Tylenol, vitamin C, aspirin 81 a day, TheraTears artificial tears, duloxetine 60 a day, iron 325 a day, hydroxyzine 10 q. 12 p.r.n., lidocaine cream, losartan 25 a day, vitamin D, and oxycodone 5 q.6 p.r.n. Total time 36 minutes. IRINE[place] [place]: IRINEO/ashley TID: [id number]
[2021-11-19 15:38] VITALS: BP 140/78
--- NOTE | 2021-11-19 15:50 | NUR ---
pt discharged and IV removed, pt taken to facility via stretcher by ambulance
== END 2021-11-19 15:50 | DRG 521 ==
LOC: ER 13:59 → EDBD 13:59 → 4 NORTH 16:19 → ER 19:14
PROVIDERS: ADMIT Internal Medicine; ATTEND Internal Medicine
PROC: 0SRS0JZ Replacement of Left Hip Joint, Femoral Surface with Synthetic Substitute, Open Approach (ICD-10-PCS; principal; 2021-11-16 14:30)
DX: S72.042A Displaced fracture of base of neck of left femur, initial encounter for closed fracture (principal); E43 Unspecified severe protein-calorie malnutrition; E11.40 Type 2 diabetes mellitus with diabetic neuropathy, unspecified; E78.5 Hyperlipidemia, unspecified; F03.90 Unspecified dementia, unspecified severity, without behavioral disturbance, psychotic disturbance, mood disturbance, and anxiety; G89.29 Other chronic pain; I10 Essential (primary) hypertension; I45.10 Unspecified right bundle-branch block; M81.0 Age-related osteoporosis without current pathological fracture; S60.222A Contusion of left hand, initial encounter; Z85.46 Personal history of malignant neoplasm of prostate; Z87.891 Personal history of nicotine dependence; F32.A Depression, unspecified; F41.9 Anxiety disorder, unspecified; M19.90 Unspecified osteoarthritis, unspecified site; Z68.21 Body mass index [BMI] 21.0-21.9, adult; Z88.8 Allergy status to other drugs, medicaments and biological substances; W18.39XA Other fall on same level, initial encounter; Y93.89 Activity, other specified; Y92.89 Other specified places as the place of occurrence of the external cause; Y99.8 Other external cause status; Z20.822 Contact with and (suspected) exposure to COVID-19
CPT/HCPCS: 36415; 71045; 72170; 73130; 73502; 80053; 81001; 82962; 83735; 83880; 84484; 85025; 85610; 85730; 86850; 86900; 86901; 87426; 93005; 93308; 96374; A4213; A4657; A4930; A6213; A6223; A6258; A6402; A6550; C1755; C1776; J0690; J1100; J1815; J2270; J2370; J2405; J2704; J3370; J3490; J7030; J7120; P9045; U0003; 92610-GN; 97110-GP; 97530-GO; 97530-GP; 97535-GO; 99285-25; G0378